=== PATIENT | female | born 1990 | race Caucasian/White ===

== ENCOUNTER 2017-03-14 10:27 | Emergency (ER) | payer OTHER ==
[~2017-03-14] VITALS: Ht 157.5 cm; Wt 109.0 kg
[~2017-03-14 10:27] MED LIST: [UNRECOGNIZED DRUG - REMARK]
[2017-03-14 10:37] VITALS: Ht 157.5 cm; Wt 109.0 kg
--- NOTE | 2017-03-14 11:40 | RADRPT ---
PROCEDURE: CT Brain without contrast. CLINICAL INDICATION: Pressure behind eyes for 3 weeks. The patient has diplopia. TECHNIQUE: CT scan of the brain was performed on a multidetector high-resolution CT scan. Axial im aging was obtained of the brain without contrast administration. Coronal and sagittal reformatted i mages were obtained from the axial source images. Standard CT scan of the head without contrast prot ocols were performed. The total exam CTDI equals 43.77 mGy and the total exam DLP equals 630.2 mGy-cm. One or more of the following dose reduction techniques were used: - Automated exposure control. - Adjustment of the mA and/or kV according to patient size. Use of iterative reconstruction technique. COMPARISON: None. FINDINGS: The ventricular system and peripheral CSF spaces are unremarkable. Negative for intracr anial masses hemorrhages or midline shift. The leonardo-white matter junction is unremarkable. Those p ortions of the orbits are visualized are unremarkable. Those portions the paranasal sinuses and mas toids visualized are unremarkable. The bones and calvarium are intact. IMPRESSION: Negative CT scan of the head without contrast. RPTAT:AAJJ Physician Karen Date Time Electronically viewed and signed by Physician Karen on 03/14/2017 11:40 BM/
--- NOTE | 2017-03-14 16:53 | ERD ---
ER Documentation Chief Complaint Date/Time DATE: 03/14/17 TIME: 16:49 Chief Complaint bila eye pain and causing blurry vision as well HPI This is a 26-year-old female presenting to the emergency department complaining of double vision when she looks of far for the past 2 months. Patient states that she has been seen by her primary care physician and an gear machine operator general however they have told her that she needs to follow-up with a neuro-start up specialist. Patient states that when she closes one eye the double vision goes away. Patient states that when she strains after long periods of time she starts to have ocular pain, rating it mild to moderate. She denies any erythema, trauma. Denies any headaches ROS All systems reviewed and are negative except as per history of present illness. Medications Home Meds Reported Medications [[place] - unk dose and frequency] No Conflict Check 03/01/13 Allergies Allergies: Coded Allergies: No Known Allergy (Verified , 03/01/13) PMhx/Soc History of Surgery: No Anesthesia Reaction: No Hx Neurological Disorder: No Hx Respiratory Disorders: No Hx Cardiac Disorders: No Hx Psychiatric Problems: No Hx Miscellaneous Medical Probl: No Hx Alcohol Use: No Hx Substance Use: No Hx Tobacco Use: No Physical Exam Vitals Vital Signs Date Time Temp Pulse Resp B/P Pulse Ox O2 Delivery O2 Flow Rate FiO2 03/14/17 10:37 98.5 78 18 151/86 99 Physical Exam Const: [] Head: Atraumatic Eyes: Normal Conjunctiva Covered uncover test shows movement ENT: Normal External Ears, Nose and Mouth. Neck: Full range of motion..~ No meningismus. Resp: Clear to auscultation bilaterally Cardio: Regular rate and rhythm, no murmurs Abd: Soft, non tender, non distended. Normal bowel sounds Skin: No petechiae or rashes Back: No midline or flank tenderness Ext: No cyanosis, or edema Neur: Awake and alert Psych: Normal Mood and Affect Procedures/MDM This is a 26-year-old female presenting to the emergency department with binocular diplopia this is likely divergence insufficiency/ strabismus. I doubt that patient has any intracranial tumors or masses but it cannot be completely excluded. Patient will need to follow-up with a neuro-start up specialist for further evaluation and management and possible MRI of the head. A CT scan of the head was done today and there was no evidence of any intracranial pathology. Patient appears well and stable to be discharged home to do have close follow-up with a neuro-start up specialist in the next week. Discussed with patient to return to the ER for any worsening symptoms. She understands and agrees with this plan Departure Diagnosis: Primary Impression: Diplopia Condition: Stable Patient Instructions: Diploplia Additional Instructions: FOLLOW UP WITH YOUR PRIMARY CARE PHYSICIAN TOMORROW.Return to this facility if you are not improving as expected. Take all medicines as directed. Return to this facility if you are not improving as expected. BRITTNEY URBINA PA-C Mar 14, 2017 16:53
== END 2017-03-14 11:59 | disposition home or self-care (01) ==
LOC: FTE 10:27
DX: H53.2 Diplopia (principal)
CPT/HCPCS: 70450; Z7502

== ENCOUNTER 2018-08-12 12:44 | Emergency (ER) | END 2018-08-12 13:18 | disposition home or self-care (01) ==

== ENCOUNTER 2018-11-25 10:16 | Emergency (ER) | payer OTHER ==
[~2018-11-25] VITALS: Ht 175.3 cm; Wt 105.3 kg
[~2018-11-25 10:16] MED LIST changes: +PRED20TA PO
[2018-11-25 10:27] VITALS: Ht 175.3 cm; Wt 105.3 kg
[2018-11-25] MEDS ORDERED: METHYLPREDNISOLONE ACET 40 MG/ML 1 ML IM ONE (12:30)
[2018-11-25] MEDS ORDERED: DEXAMETHASONE 10 MG/ML 1 ML INJ IM ONE ×2 (12:30)
[2018-11-25] MEDS ORDERED: METHYLPREDNISOLONE ACET 80 MG/ML 1 ML IM ONE (12:30)
[2018-11-25 12:40] VITALS: BP 133/79; PULSE 79; RESP 20
--- NOTE | 2018-11-25 14:10 | ERD ---
ER Documentation Chief Complaint Chief Complaint Complains of bilateral eye pain since this am HPI History of Present Illness: 28 year-old female coming in today with Chief Complaint of Eye pain. 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 Patient coming in today with patch over right eye. She reports if she covers each eye individually, double vision is not present. The patient was diagnosed in 2017 at [facility], she is bringing all the medical records. She state s that usually, when she gets a flareup, approximately, every 6 months, she gets treated with steroids. She has an appointment with her regular doctor and her neurologist next week. She denies fevers, no chills, no distal weakness, numbness or tingling. Review of systems: All systems were reviewed and are negative except for what is indicated in the history of present illness. Past Medical History:Rola Nolasco syndrome Social History: Patient denies tobacco, alcohol, elicit drug use Medications: Reviewed as documented Nursing Notes Allergies: NKDA Social Concerns: Denies ROS All systems reviewed and are negative except as per history of present illness. Medications Home Meds Active Scripts Prednisone* (Prednisone*) 20 Mg Tab, 60 MG PO DAILY for 5 Days, TAB Prov:WILLIAM LAWSON MD 08/12/18 Reported Medications [[place] - unk dose and frequency] No Conflict Check 03/01/13 Allergies Allergies: Coded Allergies: No Known Allergy (Verified , 03/01/13) PMhx/Soc Medical and Surgical Hx: pt denies Medical Hx, pt denies Surgical Hx History of Surgery: No Anesthesia Reaction: No Hx Neurological Disorder: No Hx Respiratory Disorders: No Hx Cardiac Disorders: No Hx Psychiatric Problems: No Hx Miscellaneous Medical Probl: Yes (Rola Nolasco Syndrome) Hx Alcohol Use: No Hx Substance Use: No Hx Tobacco Use: No Smoking Status: Never smoker FmHx Family History: No diabetes, No coronary disease Physical Exam Vitals Vital Signs Date Temp Pulse Resp B/P (MAP) Pulse Ox O2 O2 Flow FiO2 Time Delivery Rate 11/25/18 98.5 79 20 133/79 98 Room Air 12:40 (97) 11/25/18 98.5 74 20 139/78 98 10:27 (98) Physical Exam Patient alert, oriented, vital signs stable. HEENT: Normocephalic, atraumatic. EYES: PERRLA, EOMI, Sclera and conjunctiva appear normal. EARS: Canals clear, tympanic membranes WNL. THROAT: Normal oropharynx. NECK: Supple, No lymphadenopathy. Full ROM without pain or tenderness. HEART: RRR, no rubs, murmurs, clicks or gallops. LUNGS: Clear to auscultation. ABDOMEN: Soft, non-tender without masses or hepatosplenomegaly. EXTREMITIES: No edema bilaterally. BACK: Full ROM, no deformity, normal back exam NEURO: Cranial nerves grossly intact, no motor or sensory deficit Results 24 hrs Current Medications Medications Dose Sig/Lamont Start Time Status Last (Trade) Ordered Route PRN Stop Time Admin Dose Reason Admin 10 mg ONCE ONCE 11/25/18 DC Dexamethasone IM 12:30 11/25/18 (Decadron) 12:30 40 mg ONCE ONCE 11/25/18 DC Methylprednis IM 12:30 11/25/18 olone 12:30 Acetate (Depo-Medrol 40 Mg/ml 1 ml) 8 mg ONCE ONCE 11/25/18 DC 11/25/18 Dexamethasone IM 12:30 11/25/18 12:34 (Decadron) 12:31 80 mg ONCE ONCE 11/25/18 DC 11/25/18 Methylprednis IM 12:30 11/25/18 12:34 olone 12:31 Acetate (Depo-Medrol 80 Mg/ml 1 ml) Procedures/MDM ED course includes a thorough examination and history. ED course includes medication; dexamethasone and methylprednisolone for exacerbation of Rola-Nolasco syndrome. ED course includes visual changes. Otherwise healthy patient presenting with constellation of symptoms likely representing diplopia and exacerbation of Rola-Nolasco syndrome as characterized by history, physical exam findings radiologic/lab findings. Visual acuity within normal limits, 20/20. [employer] reporting "Steroids are used to treat the inflammation of Rola-Nolasco syndrome. Pain relief usually occurs rapidly, ie, within 24-72 hours". Patient educated to return if symptoms do not improve within the next 2 days for further evaluation. No respiratory distress, otherwise relatively well appearing and nontoxic. Patient educated on diagnoses, follow-up care, return precautions. Strict return precautions given for worsening condition; questions answered discharge. Disposition for discharge with followup in 2-3 days with PCP/clinic; neurology as scheduled. Given return precautions to return to ER. --- Vital signs stable, Physical exam unremarkable, neurovascular exam intact. Low suspicion for meningitis, FINISHING DEPARTMENT SUPERVISOR tumor, acute cerebrovascular event. During the ED course the patient remained stable, no new complaints. clinical impression discussed with patient who agrees with management. The patient is stable to be treated outpatient and will be discharged home, some side effects of prescribed medications were reviewed. Follow up with the primary care provider in the next 48h has been recommended. If symptoms persist, worsen or new symptoms develop, then patient should return to the ED immediately. Departure Diagnosis: Primary Impression: Rola-Nolasco syndrome Additional Impression: Diplopia Condition: Stable Patient Instructions: Diploplia Referrals: COMMUNITY CLINICS YOU HAVE RECEIVED A MEDICAL SCREENING EXAM AND THE RESULTS INDICATE THAT YOU DO NOT HAVE A CONDITION THAT REQUIRES URGENT TREATMENT IN THE EMERGENCY DEPARTMENT. FURTHER EVALUATION AND TREATMENT OF YOUR CONDITION CAN WAIT UNTIL YOU ARE SEEN IN YOUR DOCTORS OFFICE WITHIN THE NEXT 1-2 DAYS. IT IS YOUR RESPONSIBILITY TO MAKE AN APPOINTMENT FOR FOLOW-UP CARE. IF YOU HAVE A PRIMARY DOCTOR --you should call your primary doctor and schedule an appointment IF YOU DO NOT HAVE A PRIMARY DOCTOR YOU CAN CALL OUR PHYSICIAN REFERRAL HOTLINE AT IF YOU CAN NOT AFFORD TO SEE A PHYSICIAN YOU CAN CHOSE FROM THE FOLLOWING [facility] [address] [facility] [place]. [facility] [address] [facility] [facility] [address] [facility] [facility] [address] [facility] [facility] [address] [facility] [facility]. [address] [facility]. [facility] YOU HAVE RECEIVED A MEDICAL SCREENING EXAM AND THE RESULTS INDICATE THAT YOU DO NOT HAVE A CONDITION THAT REQUIRES URGENT TREATMENT IN THE EMERGENCY DEPARTMENT. FURTHER EVALUATION AND TREATMENT OF YOUR CONDITION CAN WAIT UNTIL YOU ARE SEEN IN YOUR DOCTORS OFFICE WITHIN THE NEXT 1-2 DAYS. IT IS YOUR RESPONSIBILITY TO MAKE AN APPOINTMENT FOR FOLOW-UP CARE. IF YOU HAVE A PRIMARY DOCTOR --you should call your primary doctor and schedule and appointment IF YOU DO NOT HAVE A PRIMARY DOCTOR YOU CAN CALL OUR PHYSICIAN REFERRAL HOTLINE AT . IF YOU CAN NOT AFFORD TO SEE A PHYSICIAN YOU CAN CHOSE FROM THE FOLLOWING [facility] INSTITUTIONS: [facility] [address] [place] [address] [facility] [place] [address] [place] [address] [facility] [address] [place] [address] [facility] Hours: Mon - Sun 9:00 AM - 5:00 PM Additional Instructions: Call your primary care doctor TOMORROW for an appointment during the next 2-3 days.See the doctor sooner or return here if your condition worsens before your appointment time. We are giving you steroids today. But if you do not see any improvement in 2-3 days return to ER or seek medical attention to be reevaluated. Keep your appointment as scheduled with neurology next week. Return for any worsening of condition, severe eye pain, worsening vision, inability to move eye, headache, nausea, vomiting. JATINDER DENISE NP Nov 25, 2018 14:10
== END 2018-11-25 12:43 | disposition home or self-care (01) ==
LOC: FTE 10:16
DX: G44.85 Primary stabbing headache (principal); H53.2 Diplopia
CPT/HCPCS: 96372; J1040; J1100; Z7502; J1030